=== PATIENT | male | born 1970 | race Caucasian/White ===

== ENCOUNTER 2024-01-21 09:29 | Day surgery (SDC) | payer BC ==
[2024-01-19 15:30] VITALS: BMI 27.1
[2024-01-21] MEDS: LACTATED RINGERS 1,000 ML IV SCH (10:03)
[2024-01-21] MEDS ORDERED: PROPOFOL 10 MG/ML 20 ML VIAL IV ONE (10:26)
[2024-01-21 10:33] VITALS: RESP 16; TEMP 97.4
--- NOTE | 2024-01-21 10:36 | P.PCN ---
Date of Procedure: 01/21/24 Procedure(s) Performed: BRIEF HISTORY: Patient is a 53-year-old pleasant white scheduled for an elective colonoscopy as a part of Screening for colon cancer. PROCEDURE PERFORMED: Colonoscopy. PREOPERATIVE DIAGNOSIS: Screening for colon cancer. IV sedation per Anesthesia. PROCEDURE: After informed consent was obtained, the patient, was brought into the endoscopy unit. IV sedation was administered by Anesthesia under continuous monitoring. Digital rectal examination was normal. Initially the Olympus CF-160 flexible video colonoscope was then inserted in the rectum, gradually advanced into the cecum without any difficulty. Careful examination was performed as the scope was gradually being withdrawn. Ileocecal valve and the appendiceal orifice were visualized and appeared normal. Prep was excellent. Mucosa of the cecum, ascending colon, transverse colon, descending colon, sigmoid colon, and rectum appeared normal.Scattered sigmoid diverticula Retroflexion was performed in the rectum and no lesions were seen. The patient tolerated the procedure well. IMPRESSION: Normal-appearing colon from rectum to cecum with no evidence of colorectal neoplasia . Scattered similar diverticulosis. RECOMMENDATIONS: Findings of this examination were discussed with the patient as well as his family. He was advised to have a repeat screening colonoscopy in 10 years.
[2024-01-21 11:16] VITALS: BP 117/74; PULSE 69
== END 2024-01-21 11:32 | disposition home or self-care (01) ==
LOC: ORWHC2ENDO 09:29
PROVIDERS: ATTEND Internal Medicine Gastroenterology
DX: Z12.11 Encounter for screening for malignant neoplasm of colon (principal); K57.30 Diverticulosis of large intestine without perforation or abscess without bleeding; I10 Essential (primary) hypertension; F41.9 Anxiety disorder, unspecified; Z79.899 Other long term (current) drug therapy
CPT/HCPCS: 45378; J2704

== ENCOUNTER → 2024-03-24 | Outpatient (CLI) | payer BC ==
--- NOTE | 2024-03-25 09:13 | CT ---
EXAMINATION TYPE: CT facial bones wo/w con CT DLP: 1431 mGycm, Automated exposure control for dose reduction was used. 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 Pt experiencing facial twitching and spasms since implant placed. Has been getting Botox to countera ct. TECHNIQUE: Multiple unenhanced axial CT images were obtained of the facial bones soft tissue and bone windows. Coronal, axial and sagittal reformatted images were also provided in soft tissue and bone windows and submitted for interpretation. Contrast used:100 mL of Isovue 300 with IV Contrast, (none if empty) Oral contrast used: (none if empty) FINDINGS: Left upper molar implant appears in appropriate position no evidence for prosthetic lucency . The 2nd cranial nerve after it leaves foramen rotundum is poorly visualized on CT imaging. There is no evidence of fracture, subluxation, dislocation, or significant soft tissue swelling. The orbital contents are unremarkable.The temporal-mandibular joints appear symmetric with degenerative changes b ilaterally.. The visualized portion of the paranasal sinuses appear clear. IMPRESSION: Left upper molar implant appears in appropriate position without evidence of loosening. The trigemina l nerves are not well visualized on CT after they leave the skull.
== END | disposition home or self-care (01) ==
LOC: RADCTMAIN 07:08
PROVIDERS: ATTEND Psychiatry & Neurology Neurology
DX: G24.5 Blepharospasm (principal); G51.32 Clonic hemifacial spasm, left; Z96.5 Presence of tooth-root and mandibular implants
CPT/HCPCS: 70488; Q9967